=== PATIENT | female | born 1990 | race Caucasian/White ===

== ENCOUNTER 2024-04-30 10:28 | Outpatient (AMB) | payer OTHER, SELFPAY ==
--- NOTE | 2024-04-30 10:38 | AM.OFFWIN_ITS ---
Intake Vital Signs 3 04/30/24 10:44 Height 5 ft Weight 91 lb BMI 17.8 BP 112/72 Blood Pressure Location Lt brachial Position Sitting Pulse 74 Pulse Source Pulse Oximeter Temp 98.7 F Temp Source Oral Pulse Oximetry (%) 99 Oxygen Delivery Method Room Air Intake Visit Reasons: Left eye itchy and red Intake Note: Itchey red left eye for about a week. Patient Tobacco Use Status: Former Tobacco user Allergies sulfamethoxazole [From Bactrim] Allergy (Unknown, Verified 04/30/24 10:58) Rash trimethoprim [From Bactrim] Allergy (Unknown, Verified 04/30/24 10:58) Rash Medication List - Last Reconciled 04/30/24 by Lakshmi Oconnor, [facility]- levonorgestrel-ethinyl estrad 0.15-0.03 mg (Gus (28)) tabs PO Do you need a note to return to daycare/school/sports/work: Yes HPI HPI Comments 2 History of Present Illness0 Details left itchy eye painful on outter corner felt like was going to get a stye started 1 week ago yesterday had a pustule this AM upon waking, had crusting sensitive to touch Denies fever, chills, headache, trauma to eye Has been applying warm moist comps No change in vision PFSH Social History Patient Tobacco Use Status: Former Tobacco user Review of Systems Const All systems reviewed & are unremarkable except as noted in HPI and below Physical Exam Vital Signs: Last Vital Signs Temp 98.7 F 04/30/24 10:44 Pulse 74 04/30/24 10:44 BP 112/72 04/30/24 10:44 Pulse Ox 99 04/30/24 10:44 Oxygen Delivery Method Room Air 04/30/24 10:44 BMI result Body Mass Index 17.8 Eyes Conjunctivae: conjunctival abnormal left conjunctival injection Sclerae: sclerae normal Pupils: Equal, round and reactive pupils present EOM: EOMs intact bilaterally Direct Ophthalmoscopy: normal light reflex and no photophobia Eyes/upper lids images: 2 1. internal hordeolum mild periorbital edema in this area with mild erythema No periorbital cellulitus Neuro Cranial nerves: Yes Equal, round and reactive pupils present Assessment & Plan Assessment & Plan (1) Internal hordeolum of left eye: Code(s): H00.026 - Hordeolum internum left eye, unspecified eyelid Qualifiers: Eyelid: lower Qualified Code(s): H00.025 - Hordeolum internum left lower eyelid Plan: . Plan . Medications: New 2 erythromycin 0.5 inches ophthalmic (eye) BID 5 days 3.5 grams 0RF erythromycin 0.5 inches ophthalmic (eye) BID 5 days 3.5 grams 0RF Coding Level of Care Code Est Pt Level 3 (81213) Diagnoses Hordeolum internum of left lower eyelid H00.025 Eyelid: lower
[2024-04-30 10:44] VITALS: BP 112/72; PULSE 74; TEMP 37.1; O2SAT 99; BMI 17.8
== END 2024-04-30 11:05 | disposition home or self-care (01) ==
PROVIDERS: Visit Provider Nurse Practitioner Family
DX: H00.025 Hordeolum internum left lower eyelid (principal)
CPT/HCPCS: 99213